=== PATIENT | male | born 1995 | race Caucasian/White ===

== ENCOUNTER 2019-02-27 12:25 | Emergency (ER) | payer BC ==
[~2019-02-27] VITALS: Ht 190.5 cm; Wt 97.7 kg
[2019-02-27 12:29] VITALS: TEMP 97.6
[2019-02-27] MEDS ORDERED: Anxiety med (12:40)
[2019-02-27] MEDS ORDERED: CEPHALEXIN500 M1 PO (13:03)
[2019-02-27 13:12] VITALS: BP 140/79; PULSE 67
== END 2019-02-27 13:12 | disposition home or self-care (01) ==
LOC: COL.ER 12:25
DX: S61.210A Laceration without foreign body of right index finger without damage to nail, initial encounter (principal); F41.9 Anxiety disorder, unspecified; W26.0XXA Contact with knife, initial encounter; Y92.009 Unspecified place in unspecified non-institutional (private) residence as the place of occurrence of the external cause